=== PATIENT | female | born 1995 | race African-American/Black ===

== ENCOUNTER 2019-06-26 14:42 | Emergency (ER) | payer SELFPAY ==
[~2019-06-26] VITALS: Ht 157.5 cm; Wt 119.4 kg
--- NOTE | 2019-06-26 16:48 | NUR ---
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
[2019-06-26] MEDS ORDERED: LIDOCAINE-MPF 1%, 5ML ONE (16:57)
[2019-06-26] MEDS ORDERED: LIDOCAINE-MPF 1%, 5ML INFIL ONE (17:00)
--- NOTE | 2019-06-26 17:02 | NUR ---
ASSUMED CARE OF PT. PT TO ED C/O NAUSEA, R ARMPIT PAIN, AND ABSCESS. "I HAVE HS" HAS HX OF THIS BUT NEVER BAD. DENIES FEVER/CHILLS/OTHER MEDICAL HX.
[2019-06-26 17:15] LABS: MEAN CORPUSCULAR HEMOGLOBIN 25.4 pg (27.0-34.8); MEAN CORPUSCULAR HGB CONC 32.2 g/dL (32.4-35.8); MEAN CORPUSCULAR VOLUME 78.9 fL (80-100); MEAN PLATELET VOLUME 7.9 fL (7.4-10.4); PLATELET COUNT 492 x10^3/uL (130-400); RED BLOOD COUNT 5.54 x10^6/uL (3.82-5.3); RED CELL DISTRIBUTION WIDTH 14.9 % (9.6-15.2)
[2019-06-26 17:24] LABS: ALBUMIN 3.8 g/dL (3.4-5.0); ANION GAP 5 mmol/L (5-15); CALCIUM 9.6 mg/dL (8.5-10.1); CHLORIDE 109 mmol/L (98-107); CREATININE 0.87 mg/dL (0.55-1.02)
[2019-06-26 17:43] LABS: BASOPHILS # (AUTO) 0.08 x10^3/uL (0-0.1); BASOPHILS % (AUTO) 1 % (0-1); EOSINOPHILS % (AUTO) 2 % (1-7); LYMPHOCYTES # (AUTO) 3.04 x10^3/uL (1-3.4); LYMPHOCYTES % (AUTO) 18 % (22-44); MD SCAN; MONOCYTES # (AUTO) 0.86 x10^3/uL (0.2-0.8); MONOCYTES % (AUTO) 5 % (2-9); NEUTROPHILS % (AUTO) 75 % (42-75)
[2019-06-26] MEDS ORDERED: HYDROmorphone 1 MG/ML, 1ML INJ IVPush PRN (18:00)
[2019-06-26] MEDS ORDERED: HYDROmorphone 1 MG/ML, 1ML INJ ONE ×2 (18:05→19:37)
[2019-06-26] MEDS: HYDROmorphone 1 MG/ML, 1ML INJ IM PRN ×2 (18:09→19:39)
[2019-06-26 18:12] VITALS: BP 110/72
--- NOTE | 2019-06-26 18:13 | NUR ---
PAIN MEDS, PLAN I/D.
--- NOTE | 2019-06-26 19:55 | NUR ---
dialudid for pain. pt very tearful after i/d. as
== END 2019-06-26 20:33 | disposition home or self-care (01) ==
LOC: ED 17:26
DX: L02.411 Cutaneous abscess of right axilla (principal)
CPT/HCPCS: 10060; 36415; 80048; 82040; 85025; 96372; 99283; J1170

== ENCOUNTER 2019-06-28 19:04 | Emergency (ER) | payer SELFPAY ==
[~2019-06-28] VITALS: Ht 157.5 cm; Wt 118.0 kg
[2019-06-28 19:18] VITALS: BP 158/98
[2019-06-28] MEDS ORDERED: HYDROcodone/APAP 5/325 TABLET PO ONE (19:30)
[2019-06-28] MEDS ORDERED: OXYcodone/APAP 5/325MG TABLET ONE (19:31)
[2019-06-28] MEDS ORDERED: HYDROcodone/APAP 5/325 TABLET ONE (19:33)
== END 2019-06-28 20:02 | disposition home or self-care (01) ==
LOC: ED 19:56
DX: L02.411 Cutaneous abscess of right axilla (principal); M79.621 Pain in right upper arm
CPT/HCPCS: 99283

== ENCOUNTER 2019-06-29 00:47 | Emergency (ER) | payer SELFPAY ==
[~2019-06-29] VITALS: Ht 157.5 cm; Wt 118.0 kg
[2019-06-29 00:55] VITALS: BP 145/75
--- NOTE | 2019-06-29 01:09 | NUR ---
PT STATES SHE WAS HERE EARLIER TODAY TO HAVE A WOUND REPACKED, SHE REPORTS THE TAPE APPLIED TO THE AREA HAS CAUSED SIGNIFICANT PAIN AND BURNING
[2019-06-29] MEDS ORDERED: DIPHENHYDRAMINE 25 MG CAPSULE ONE (01:20)
[2019-06-29] MEDS ORDERED: DIPHENHYDRAMINE 25 MG CAPSULE PO ONE (01:30)
== END 2019-06-29 01:59 | disposition home or self-care (01) ==
LOC: ED 01:19
DX: Z48.01 Encounter for change or removal of surgical wound dressing (principal)
CPT/HCPCS: 99283; Q0163